=== PATIENT | female | born 1950 | race Caucasian/White ===

== ENCOUNTER 2016-09-28 11:15 | Outpatient (CLI) | payer OTHER ==
[~2016-09-28 11:15] MED LIST: AMARYL2 MG PO; ASPIRIN EC325 MG PO; DIOVAN HCT1 TAB PO; FLUOXETINE HCL20 MG PO; LANTUS SOL100 UNITS/ SC; LYRICA100 MG PO; METFORMIN HCL500 MG PO; MORPHINE SULFAT60 M2 PO; NITROSTAT0.4 MG SL; NIZORAL2 %; PANTOPRAZOLE SO40 MG PO; PLAVIX75 MG PO; RANITIDINE HCL150 MG PO; REQUIP1 MG PO; ROXICET1 TAB PO; TOPAMAX25 MG PO; TRIAMCINOLONE0.025 % TOP; VITAMIN D1000 UNIT PO; ZETIA10 MG PO
--- NOTE | 2016-09-28 12:54 | DIAGNOSTIC IMAGING REPORT ---
PROCEDURE: MG BILATERAL SCREENING W/CAD INDICATION: SCREENING. Sister with a history of breast cancer TECHNIQUE: Bilateral CC and MLO digital views. COMPARISON: Left mammogram 01/12/2016, 06/30/2015 with left breast ultrasound and bilateral mammogram 06/22/2015. FINDINGS: Computer-aided detection applied. Mild dense. No change. IMPRESSION: 1. Negative mammogram RESULT CODE: 1- Negative. A. A negative report should not delay biopsy if a dominant or clinically suspicious mass is present. 10-15% of cancers are not identified by x-ray. B. A negative report may reinforce clinical impression. C. Adenosis and dense breasts may obscure an underlying neoplasm. D. False positive reports average 6-10%. E.. A yearly screening mammogram is recommended. A reminder letter will be scheduled.
== END 2016-09-28 23:00 ==
LOC: MAM SRH 11:15
DX: Z12.31 Encounter for screening mammogram for malignant neoplasm of breast (principal); Z80.3 Family history of malignant neoplasm of breast